=== PATIENT | female | born 1980 | race Caucasian/White ===

== ENCOUNTER → 2017-02-01 03:00 | Observation (INO) ==
--- NOTE | 2017-02-01 01:18 | OB/GYN Progress Note ---
Date of Encounter: 02/01/17 Time of Encounter: 01:12 - Assessment and Plan (1) Uterine contractions Status: Acute Reports irregular contractions, up to 5-6 per hour at times, but less frequent now No LOF, vaginal bleeding, or vaginal discharge monitoring - baseline 140 with variability and accels - Category I [place] irregular Cervix check on 01/27/17: 4/80/-1 Cervix check today: 480/-1 per RN No cervical change after 2 hours of monitoring Pt can be discharged home with labor precautions (2) 38 weeks gestation of Status: Acute Subjective - Subjective Principal diagnosis: Contractions Interval history: Ms. العلي is a 36 year old at 38w6d presenting to L&D with complaints of contractions and pelvic pressure. She reports that her contractions are intermittent and became more frequent yesterday morning, up to 5-6 per hour at times. She states that since her arrival they have become less frequent. She denies LOF, vaginal bleeding, or vaginal discharge. Reports good movement. She states there have been no complications with this . On ROS she admits to some dysuria that has been going on for quite some time, mild LE edema, and nasal congestion. She denies fevers, chills, headaches, blurry vision, chest pain, dyspnea, or abdominal pain. Blood type B+ GBS negative Rubella Non-immune Varicella equivocal All other serologies negative I examined this patient and my medical decision-making was reviewed with the Resident Physician. I agree with the documented findings, disposition and treatment plan as described except to the extent set forth below. Antepartum ROS: movement normal, contractions, no loss of fluid, no vaginal bleeding Objective - Vital Signs Vital Signs: Intake and Output 01/31/17 01/31/17 02/01/17 15:59 23:59 07:59 Other: Weight 68.6 kg Patient Weight 02/01/17 23:59 Weight 68.6 kg - Exam FHR: auscultation normal, category 1 FHR comments: Baseline 140 with variability and accels - Category I Auscultation: bilateral: normal Abdomen: Present: normal appearance, soft, gravid. Absent: tenderness Uterus: Present: normal, firm Cervical dilation: 4 cm per RN
[2017-02-01 01:24] LABS: Bilirubin,Urine Negative (Negative); Blood,Urine Negative (Negative); Clarity,Urine Cloudy (Clear); Color,Urine Yellow (Yellow); Glucose,Urine (UA) Normal (Normal); Ketones,Urine Negative (Negative); Leukocyte Esterase,Urine Trace (Negative); Nitrite,Urine Negative (Negative); PH,Urine 6.5 pH Units (5.0-8.0); Protein,Urine Trace mg/dL (Neg-Trace); Specific Gravity,Urine > 1.030 (1.010-1.025); Urobilinogen,Urine Normal (Normal)
[2017-02-01 01:27] LABS: Bacteria,Urine Many per hpf (None-Few); Hyaline Casts,Urine None Seen per lpf (None-Few); RBC,Urine 0-3 per hpf (0-3); Squamous Epithelial Cell,Urine Many per lpf (None-Few); WBC,Urine 15-30 per hpf (0-3)
[2017-02-01 01:29] LABS: Amphetamine Screen,Urine Negative ng/mL (Cutoff=1000); Barbiturate Screen,Urine Negative ng/mL (Cutoff=200); Benzodiazepines Screen,Urine Negative ng/mL (Cutoff=200); Cannabinoid Screen,Urine Negative ng/mL (Cutoff = 50); Cocaine Screen,Urine Negative ng/mL (Cutoff= 300); Opiate Screen,Urine Negative ng/mL (Cutoff=300); Phencyclidine Screen,Urine Negative ng/mL (Cutoff=25)
== END | disposition home or self-care (01) ==
LOC: 1NENULAB
PROVIDERS: ADMIT Obstetrics & Gynecology; ATTEND Obstetrics & Gynecology

== ENCOUNTER 2017-02-04 07:00 | Inpatient (IN) ==
[2017-02-04] MEDS ORDERED: Famotidine 20 MG/2 ML VIAL IVP PRN (08:16)
[2017-02-04] MEDS ORDERED: Naloxone 0.4 MG/ML INJ IVP PRN (08:16)
[2017-02-04] MEDS ORDERED: *HR* Nalbuphine 20 MG/ML AMPUL IVP PRN (08:16)
[2017-02-04] MEDS ORDERED: Ondansetron 4 MG/2 ML VIAL IVP PRN (08:16)
[2017-02-04] MEDS ORDERED: Metoclopramide 10 MG/2 ML VIAL IVP PRN (08:16)
[2017-02-04 08:25] LABS: Basophils % 0.2 %; Eosinophils # 0.1 K/mcL (0.0-0.6); Hematocrit 32.9 % (35.3-44.9); Hemoglobin 10.1 g/dL (11.5-15.4); Immature Granulocytes % 0.3 % (0-4); Lymphocytes # 1.6 K/mcL (0.6-4.6); Lymphocytes % 17.6 %; Mean Corpuscular HGB Conc 30.7 g/dL (31.6-35.5); Mean Corpuscular Hemoglobin 24.2 pg (28.0-33.3); Mean Corpuscular Volume 78.7 fL (83.0-100.0); Mean Platelet Volume 10.9 fL (9.4-12.4); Monocytes # 0.9 K/mcL (0.0-1.3); Monocytes % 10.4 %; Neutrophils # 6.3 K/mcL (1.6-8.9); Platelet Count 433 K/mcL (140-400); Red Blood Count 4.18 M/mcL (3.82-4.97); Red Cell Distribution Width 14.1 % (11.5-14.5); Segmented Neutrophils % 70.5 %
[2017-02-04] MEDS ORDERED: Ringers Solution, Lactated 1,000 ML IVC SCH (08:30)
[2017-02-04 08:33] LABS: Amphetamine Screen,Urine Negative ng/mL (Cutoff=1000); Barbiturate Screen,Urine Negative ng/mL (Cutoff=200); Benzodiazepines Screen,Urine Negative ng/mL (Cutoff=200); Cannabinoid Screen,Urine Negative ng/mL (Cutoff = 50); Cocaine Screen,Urine Negative ng/mL (Cutoff= 300); Opiate Screen,Urine Negative ng/mL (Cutoff=300); Phencyclidine Screen,Urine Negative ng/mL (Cutoff=25)
--- NOTE | 2017-02-04 09:42 | OB/GYN History & Physical ---
Date of Encounter: 02/04/17 Time of Encounter: 09:37 Assessment and Plan (1) 39 weeks gestation of Current visit: Yes Status: Acute admitted for labor augmentation (2) Rubella non-immune status, antepartum Current visit: Yes Status: Acute MMR offered after delivery (3) Susceptible varicella Current visit: Yes Status: Acute Patient educated on Immunization History of Present Illness Chief complaint: Scheduled IOL 39w2d HPI: Ms. العلي is a 36 year old female @ 39w2d presents to labor and delivery for scheduled IOL however, was marleen on her own and had made cervical change since last appointment. Patient reports contractions became more intense about a hour before coming to labor and delivery. Patient denies LOF or VB. Patient reports +FM. Decision was made to augment labor with AROM only at this time. Blood type: B+ Rubella: non-immune Hep B: nonreactive Varicella: Equivocal GBS: Negative Past Med Surg Social Fam HX - Past Medical History Source: patient Medical history: GERD, other Psychiatric history: depression - Past Surgical History Surgical History: cholecystectomy - Social History Smoking Status: Never smoker Smokeless Tobacco Status: No Alcohol use: none Drug use: none - Family History Mother Living Status: Still Living Father Adopted: No Family Member Ethnicity: Non- Living Status: Hx Family Cardiac Disorders: No Hx Family Respiratory Disorders: No Hx Family Cancer: No Hx Family GI Disorders: No Hx Family Genitourinary Disorders: No Hx Family Endocrine Disorder: No Hx Family Musculoskeletal Disorders: No Hx Family Neuromuscular Disorders: No Hx Family Neurologic Disorders: No Hx Family HEENT Disorders: No Hx Family Autoimmune Disorders: No Hx Family Reproductive Disorders: No Hx Family Psychosocial Disorders: No Hx Family Medical Disorders: Yes (sclerosis of the liver) Obstetrical History - Pregnancies : 6 Para: 4 Term: 4 : 0 Ab's: 1 Livin Medications and Allergies No Known Home Drugs 02/01/17 [History] 3 Allergy/AdvReac Type Severity Reaction Status Date / Time No Known Allergies Allergy Verified 02/01/17 00:54 Review of System OB - Constitutional Constitutional ROS IM: no chills, no fever(s), no headache(s) - Cardiovascular Cardiovascular: no chest pain, no lightheadedness, no palpitations, no syncope - Respiratory Respiratory: no cough, no dyspnea - Gastrointestinal Gastrointestinal: no abdominal pain, no cramping, no diarrhea, no heartburn, no nausea, no vomiting - Genitourinary Genitourinary: no abnormal vaginal bleeding, no dysuria, no flank pain, no urinary frequency, no urinary urgency, no vaginal discharge Exam - Constitutional Constitutional: well developed, well nourished, no acute distress, average body habitus - HEENT HEENT: Normocephaly, Mucus Membranes Moist - Neck Neck exam: full ROM, supple - Lungs Respiratory exam: CTAB - Cardiovascular Cardiovascular exam: RRR, +S1, +S2 - Abdomen Abdomen: Present: bowel sounds normal, gravid, non tender - Extremities Extremities exam: full ROM, normal capillary refill, normal inspection Deep Tendon Reflex Grade: 2+ Normal - Cervix Dilation: 5 Effacement: 90 Station: -1 - Anus/Rectum Anus/Rectum: Present: normal perianal skin - Comments Comments: AROM, moderate amount of clear fluid. Results Result Diagrams: 02/04/17 08:16 Abnormal lab results Hgb 10.1 g/dL (11.5-15.4) L 02/04/17 08:16 Hct 32.9 % (35.3-44.9) L 02/04/17 08:16 MCV 78.7 fL (83.0-100.0) L 02/04/17 08:16 MCH 24.2 pg (28.0-33.3) L 02/04/17 08:16 MCHC 30.7 g/dL (31.6-35.5) L 02/04/17 08:16 Plt Count 433 K/mcL (140-400) H 02/04/17 08:16 All other labs normal. - VTE Reasons for not Prescribing Prophylaxis: Treatment not Indicated - Low risk for VTE
[2017-02-04] MEDS ORDERED: *HR* FentaNYL (PF) 100 MCG/2 ML VIAL EP ONE (10:03)
[2017-02-04] MEDS ORDERED: Bupivacaine-MPF 0.25% 10 ML VIAL EP ONE (10:03)
[2017-02-04] MEDS ORDERED: Epidural Premix (fent/bupiv) 110 ML EP ONE (10:13)
[2017-02-04] MEDS ORDERED: Bupivacaine-MPF 0.25% 10 ML VIAL ONE (10:13)
[2017-02-04] MEDS ORDERED: *HR* FentaNYL (PF) 100 MCG/2 ML VIAL ONE (10:14)
[2017-02-04] MEDS ORDERED: Epidural Premix (fent/bupiv) 110 ML EP SCH (10:15)
--- NOTE | 2017-02-04 10:57 | Anesthesia Evaluation PreOp ---
Date of Encounter: 02/04/17 Time of Encounter: 10:06 - Past History Planned Operation: labor epidural Cardiac History: Denies any Significant Hx Pulmonary History: Denies Any Significant HX LOGISTICS RESEARCH ENGINEER History: Denies Any Significant HX Other Medical History: Denies Any Significant HX Anesthesia History: No Prior Anesthetic Complications, Past Anesthesia (lap zaria, D&C, no problems with anethesia. Previous epidurals without problems. Denies family history anesthetic problems.) Alcohol Use: none Drug use: none Medications and Allergies No Known Home Drugs 02/01/17 [History] 3 Allergy/AdvReac Type Severity Reaction Status Date / Time No Known Allergies Allergy Verified 02/01/17 00:54 - Meds/Allergy Pre-op Review Medications Reviewed: Yes Allergies Reviewed: Yes Beta Blockers on Current Med List: No Anesthesia Results - Labs 02/04/17 08:16 Anesthesia Exam 124/84, 72, 16, 98%. FHTs 120s. Height: 5'2" Weight: 69 kg NPO (# of Hours): >12 Pain Scale: 5 Pain Scale Used: Numeric (1 - 10) - HEENT Pupil (Motor): Pupils equal, EOMI Mallampati: II Teeth: Normal Oral Opening: Greater than 3 - LOGISTICS RESEARCH ENGINEER LOC: Oriented LOGISTICS RESEARCH ENGINEER Motor: Normal RUE, Normal LUE, Normal RLE, Normal LLE, Normal Face LOGISTICS RESEARCH ENGINEER Sensory: Normal: RUE, LUE, RLE, LLE, Face - Cardiac Rhythm: Regular - Pulmonary Breath Sounds: bilateral Clear Respiratory Effort: Symmetrical Anesthesia Assess/Plan ASA Score: 2 Modified Samantha Scale for Level of Consciousness: Cooperative, oriented, and tranquil Anesthetic Plan: Regional Monitoring Plan: Standard Monitors
--- NOTE | 2017-02-04 11:01 | Anesthesia Procedures ---
Date of Encounter: 02/04/17 Time of Encounter: 10:20 Procedures: Anesthesia - Epidural/Spinal Patient ID/Chart reviewed: Yes Patient examined: Yes OB Eval: Gestational age: 39 OB Eval: : 6 OB Eval: Hx Para: 4 OB Eval: Dilated at (cm): 5 OB Eval: Contractions: Non-stressed pattern Consent Obtained: Yes Supplemental Oxygen: None/Room Air Site Prep: Aseptic Technique, Sterile prep and drape, Povidone-Iodine 1% Patient position: upright Local Anesthetic: Lidocaine 1% Amount of Local Anesthetic used: 5 Touhy Needle Gauge: 18 Touhy Needle Depth (cm): 5 Catheter Depth at Skin (cm): 17 Test Dose (1.5% Lido + Epi): Volume given (mls): 3 Test Dose Result: Negative Loading Dose: 0.25% Marcaine (mls): 8 Loading Dose: Fentanyl (mcg): 100 Loading Dose Administered: Thru Catheter Catheter Secured in Place: Tegaderm, Tape Interspace Used: L4-L5 Loss of Resistance (ANGELITO): Yes Blood: No CSF: No Paresthesia: No Procedure: Initially placed needle into epidural spcae at L3-4, was unable to pass catheter. Removed needle. Moved down to L4-5, easily found epidural space and catheter easily placed to 17 cm. Vitals + FHT's: 3 Vital Signs Time 1006 1020 1043 1045 1050 1055 BP 124/84 124/84 114/76 107/71 112/74 114/73 Pulse 72 78 80 71 82 75 FHTs 130 120 120 120 120 120
[2017-02-04] MEDS ORDERED: Oxytocin 20 units/ LR 1000 mL 20 UNIT/1,000 ML BAG IVC ONE (11:19)
[2017-02-04] MEDS ORDERED: Lidocaine/EPI 1:100k 1% 50 ML VIAL INFILT ONE (12:13)
[2017-02-04] MEDS ORDERED: Lidocaine/EPI 1:100k 1% 20 ML VIAL INFILT ONE (13:00)
[2017-02-04] MEDS ORDERED: Acetaminophen 325 MG TABLET PO PRN (16:07)
[2017-02-04] MEDS ORDERED: Measles/Mumps/Rubella Vacc 0.5 ML VIAL SQ PRN (16:07)
[2017-02-04] MEDS ORDERED: *HR* HYDROcodone/Acet 5/325 mg TABLET PO PRN (16:07)
--- NOTE | 2017-02-04 16:10 | OB/GYN Procedure Note ---
Delivery - Delivery Date: 02/04/17 Provider: Amy Massey Intrapartum events: none Delivery induction: none Delivery augmentation: rupture of membranes Delivery monitor: external FHT, external uterine Anesthesia: epidural Estimated Blood Loss: 100 - (s) Infant A Delivery Date: 02/04/17 Infant Delivery Time: 15:54 Presentation: vertex Position: JAZ Route of delivery: Gender: Male Viability: Viable Pounds: 8 Ounces: 0 at 1 minute: 8 at 5 mins: 9 Shoulder Dystocia: not encountered Placenta: spontaneous, uterine exploration Cord: 3 umbilical vessels - Repair Episiotomy: none Laceration Description: Perineal - 2nd Degree - Complications Delivery complications: none Delivery comments: The patient was complete and pushing with epidural anesthesia with a spontaneous vaginal delivery in the JAZ position of a vigorous male infant weighing 8 lbs. 0oz. with Apgars of 8 at 1 minute and 9 at 5 [address] was placed on the maternal abdomen. The cord was clamped and cut after pulsations ceased. Cord blood obtained. The placenta was delivered spontaneous and intact. There was a second-degree perineal laceration through her previous scar that was repaired with 3-0 Monocryl in the usual fashion. No other lacerations visualized or identified. Estimated blood loss 100 mL, complications none - Disposition Mom disposition: stable in LDR [place] disposition: stable in LDR
[2017-02-04] MEDS ORDERED: Oxytocin 20 units/ LR 1000 mL 20 UNIT/1,000 ML BAG IVC SCH ×2 (16:15→18:40)
[2017-02-04] MEDS ORDERED: Ibuprofen 600 MG TABLET PO SCH (18:00)
[2017-02-05] MEDS: Ibuprofen 600 MG TABLET PO PRN ×2 (02:28→11:06)
[2017-02-05 08:38] VITALS: BP 116/76
[2017-02-05] MEDS ORDERED: Prenatal Vit/FA 1 EACH TABLET PO SCH ×2 (09:00)
--- NOTE | 2017-02-05 09:42 | Discharge Summary ---
Date of Encounter: 02/05/17 Time of Encounter: 09:40 - Discharge Diagnosis (1) Vaginal delivery Priority: Primary Status: Acute Comments: Pt meeting milestones. (2) Rubella non-immune status, antepartum Priority: Secondary Status: Acute Comments: offer vaccine prior to discharge - Discharge Medications Prescriptions: Ibuprofen [Motrin] 600 mg PO Q6HR PRN #30 tablet PRN Reason: Pain Docusate [Colace] 100 mg PO BID #30 capsule Home Medications: Docusate [Colace] 100 mg PO BID #30 capsule 02/05/17 [Rx] Ibuprofen [Motrin] 600 mg PO Q6HR PRN #30 tablet 02/05/17 [Rx] Vit/FA 1 each PO DAILY tablet 02/05/17 [Rx] Allergies/Adverse Reactions: 3 Allergy/AdvReac Type Severity Reaction Status Date / Time No Known Allergies Allergy Verified 02/01/17 00:54 Data Procedures and tests throughout hospitalization: Laboratory Tests 02/04/17 02/04/17 08:16 08:16 WBC 9.0 RBC 4.18 Hgb 10.1 L Hct 32.9 L MCV 78.7 L MCH 24.2 L MCHC 30.7 L RDW 14.1 Plt Count 433 H MPV 10.9 Immature Gran % 0.3 Seg Neutrophils % 70.5 Lymphocytes % 17.6 Monocytes % 10.4 Eosinophils % 1.0 Basophils % 0.2 Neutrophils # 6.3 Lymphocytes # 1.6 Monocytes # 0.9 Eosinophils # 0.1 Basophils # 0.0 Urine Opiates Screen Negative Ur Barbiturates Screen Negative Ur Phencyclidine Scrn Negative Ur Amphetamines Screen Negative U Benzodiazepines Scrn Negative Urine Cocaine Screen Negative U Marijuana (THC) Screen Negative Date of admission: 02/04/17 07:13 Primary care physician: PCP NONE Consults: 02/04/17 18:40 Consult to Line Lead [CONS] Routine Comment: Vaginal delivery, consult needed Discharging clinician: Syeda Kirkpatrick Anticipated date of discharge: 02/05/17 - Patient Status Disposition: Home, Self-Care Condition: Good Functional capacity at discharge: independent ambulation Overall status at discharge: patient is progressing back to baseline - Discharge Instructions Follow Up With: NONE,PCP [Primary Care Provider] - Amy Massey MD [Partnered Physician] - - Diet and Activity Activity: increase activity as tolerated Diet: regular diet Hospital Course Reason for admission: active labor Delivery: Episiotomy: none Laceration: 2nd degree Other procedures: none complications: none Discharge diagnosis: IUP at term delivered baby: male Hospital course: - Delivery Date: 02/04/17 Provider: Amy Massey Intrapartum events: none Delivery induction: none Delivery augmentation: rupture of membranes Delivery monitor: external FHT, external uterine Anesthesia: epidural Estimated Blood Loss: 100 - (s) A Infant Delivery Date: 02/04/17 Infant Delivery Time: 15:54 Presentation: vertex Position: JAZ Route of delivery: Gender: Male Viability: Viable Pounds: 8 Ounces: 0 at 1 minute: 8 at 5 mins: 9 Shoulder Dystocia: not encountered Placenta: spontaneous, uterine exploration Cord: 3 umbilical vessels - Repair Episiotomy: none Laceration Description: Perineal - 2nd Degree - Complications Delivery complications: none course: uncomplicated, home PPD#1, bottle feeding, declines contraception Time Attestation: Total time spent providing and/or coordinating discharge services: Time Spent: Less than 30 minutes Exam - Constitutional Vitals: Temp Pulse Resp BP Pulse Ox 97.5 F L 64 16 116/76 100 02/05/17 07:50 02/05/17 07:50 02/05/17 09:10 02/05/17 07:50 02/05/17 07:50 General appearance IM: A&O X 3, pleasant, no acute distress - Respiratory Respiratory exam: Present: CTAB - Cardiovascular Cardiovascular exam IM: Present: RRR, +S1, +S2 - GI/Abdominal GI/Abdominal exam IM: soft, no peritoneal signs - Rectal Rectal exam: deferred - External exam: normal external exam Uterine Tone: Firm Uterus Position: At Umbilicus - Extremities Exam Extremities exam IM: Present: normal inspection - Neurological Exam Neurological exam: normal gait, oriented X3 - Psychiatric Additional comments: reports good mood
== END 2017-02-05 18:15 | disposition home or self-care (01) | DRG 775 ==
LOC: 1NENULAB 07:13 → 1NENUOBS 18:36
PROVIDERS: ADMIT Advanced Practice Midwife; ATTEND Advanced Practice Midwife